=== PATIENT | male | born 1955 | race Two or more races ===

== ENCOUNTER 2016-08-29 23:28 | Emergency (ER) | payer OTHER ==
[~2016-08-29] VITALS: Ht 175.3 cm; Wt 88.5 kg
[2016-08-30] MEDS: IBUPROFEN 800 MG TABLET PO ONE (01:58)
[2016-08-30] MEDS ORDERED: IBUPROFEN 800 MG TABLET ONE (02:09)
--- NOTE | 2016-08-30 04:15 | NUR ---
Patient discharged to home in stable conditon. Written and verbal after care instructions given. Patient verbalizes understanding of instructions.
== END 2016-08-30 04:16 | disposition home or self-care (01) ==
LOC: ER 23:34
DX: S13.4XXA Sprain of ligaments of cervical spine, initial encounter (principal); M54.6 Pain in thoracic spine; F10.20 Alcohol dependence, uncomplicated; V89.2XXA Person injured in unspecified motor-vehicle accident, traffic, initial encounter; Y93.89 Activity, other specified; Y99.8 Other external cause status; Y92.89 Other specified places as the place of occurrence of the external cause
CPT/HCPCS: 72125; A4663